=== PATIENT | female | born 1990 | race Caucasian/White ===

== ENCOUNTER 2017-02-04 22:23 | Emergency (ER) | payer OTHER ==
[~2017-02-04] VITALS: Ht 160 cm; Wt 57.7 kg
[~2017-02-04 22:23] MED LIST: ENDOCET 5-3251 EACH PO; PRENATAL TABLE1 EAC3 PO; TORADOL10 MG PO; TYLENOL EXTRA500 MG PO
[2017-02-04] MEDS ORDERED: INDOCIN50 MG PO (23:10)
[2017-02-04 23:35] VITALS: BP 114/79
== END 2017-02-04 23:36 | disposition home or self-care (01) ==
LOC: EME 22:23
DX: S83.422A Sprain of lateral collateral ligament of left knee, initial encounter (principal); S83.412A Sprain of medial collateral ligament of left knee, initial encounter; M23.92 Unspecified internal derangement of left knee; Z87.828 Personal history of other (healed) physical injury and trauma; Z98.890 Other specified postprocedural states; Z88.5 Allergy status to narcotic agent
CPT/HCPCS: 99281; 99283

== ENCOUNTER 2017-05-09 04:15 | Emergency (ER) | payer OTHER ==
[~2017-05-09] VITALS: Ht 160 cm; Wt 58.5 kg
[~2017-05-09 04:15] MED LIST changes: +INDOCIN50 MG PO
[2017-05-09 04:44] LABS: ADD MIUA? YES; BILIRUBIN NEGATIVE; BLOOD LARGE; COLOR YELLOW ((YELLOW)); GLUCOSE (STRIP) NEGATIVE; KETONES NEGATIVE; LEUKOCYTES LARGE; NITRITE NEGATIVE; PROTEIN (STRIP) 100; SPECIFIC GRAVITY 1.021 (1.000-1.030)
[2017-05-09] MEDS ORDERED: PYRIDIUM200 MG PO (05:00)
[2017-05-09] MEDS ORDERED: BACTRIM,SEPT1 TABLET PO (05:00)
[2017-05-09 05:13] VITALS: BP 119/82
[2017-05-09 05:31] LABS: RED BLOOD CELLS TNTC /HPF (0-5); WHITE BLOOD CELLS TNTC /HPF (0-5)
[2017-05-09 05:33] LABS: EPITHELIAL CELLS 1+ /HPF; UCUL ADDED? YES
== END 2017-05-09 05:13 | disposition home or self-care (01) ==
LOC: EME 04:15
DX: N39.0 Urinary tract infection, site not specified (principal); Z87.440 Personal history of urinary (tract) infections
CPT/HCPCS: 81003; 87077; 87086; 87186; 99281; 99285